=== PATIENT | female | born 1975 | race Caucasian/White ===

== ENCOUNTER → 2016-07-02 | Outpatient (CLI) | payer BC ==
[~2016-07-02] MED LIST: CEPHALEXIN500 M1 PO; MOTRIN800 MG PO; PREDNISONE20 M1 PO; XANAX0.25 MG PO
== END | disposition home or self-care (01) ==
LOC: US 15:45
DX: R31.9 Hematuria, unspecified (principal); R10.9 Unspecified abdominal pain

== ENCOUNTER 2017-04-26 18:35 | Inpatient (IN) | payer OTHER ==
[~2017-04-26] VITALS: Ht 162.6 cm; Wt 88.1 kg
--- NOTE | ~2017-04-26 | PR ---
[place], [place] PROGRESS NOTE NAME: ELHAM LIANG [facility] #: [id number] UNIT #: [id number] ROOM: 406 DOCTOR: JERRICA MORILLO MD BIRTHDATE: [birth year] DOS: 04/28/2017 SUBJECTIVE: The patient was seen in the Cardiology Department today, 04/28/2017, prior to her having a stress test. She is a 41-year-old woman who had an episode of tachy palpitations. She described this as a fluttering in her chest with some radiation to her left lateral neck. She presented to the Emergency Room, by which time her symptoms had resolved. Her electrocardiogram was unremarkable. Troponin levels were marginally elevated at 0.090, 0.080 and 0.076. Monitor has not shown any SVT since her admission. She denies consumption of any decongestants, sinus medications or other stimulants. A drug screen was negative. PHYSICAL EXAMINATION: VITAL SIGNS: Today, her pulse was 90 and regular, blood pressure 124/76. She is afebrile. NECK: Supple. She has no jugular distention. Carotids are full. LUNGS: Respirations are unlabored. Her chest is clear to auscultation and percussion. HEART: Has a regular rhythm without murmurs, rubs or gallops. ABDOMEN: Benign. EXTREMITIES: Showed no edema. IMPRESSION: 1. Tachy palpitations. 2. Minimal elevation in troponin. PLAN: We will obtain an echocardiogram and an exercise myocardial perfusion study today. If nothing shows up on her monitor and her studies are normal, she can be discharged and should have a 30-day event recorder as an outpatient. We thank the hospitalist physicians for asking our advice regarding her care. JERRICA MORILLO MD CM:[facility]ANS [id number] JERRICA MORILLO MD 04/28/17 1022 interface
[2017-04-26 18:51] VITALS: BP 161/85
[2017-04-26 19:05] LABS: BASO % 0.4 % (0.0-1.0); EOS # 0.2 10*3/uL (0.0-0.4); EOS % 2.3 % (1.0-4.0); HEMATOCRIT 40.7 % (37.0-47.0); HEMOGLOBIN 12.7 g/dl (12.0-16.0); LYMPH # 2.6 10*3/uL (1.3-4.4); LYMPH % 27.7 % (27.0-41.0); MEAN CELL VOLUME 80.9 fl (81.0-99.0); MEAN CORPUSCULAR HGB 25.2 pg (27.0-31.0); MEAN CORPUSCULAR HGB CONC 31.2 g/dl (33.0-37.0); MEAN PLATELET VOLUME 10.5 fl (9.6-12.3); MONO # 0.7 10*3/uL (0.1-1.0); MONO % 7.1 % (3.0-9.0); NEUT # 5.9 10*3/uL (2.3-7.9); NEUT % 62.3 % (47.0-73.0); PLATELET COUNT AUTOMATED 361 10*3/uL (130-400); RED BLOOD COUNT 5.03 10*6/uL (4.10-5.10); RED CELL DISTRI WIDTH 14.6 % (0-14.5); WHITE BLOOD COUNT 9.5 10*3/uL (4.8-10.8)
[2017-04-26 19:15] LABS: ACT PARTIAL THROMBO TIME 22.3 SECONDS (20.8-31.5)
[2017-04-26 19:22] LABS: BUN 11 mg/dl (7-24); CHLORIDE 108 mmol/L (98-107); CREATININE 0.86 mg/dL (0.55-1.02); POTASSIUM 3.8 mmol/L (3.5-5.1); SODIUM 144 mmol/L (136-145)
--- NOTE | 2017-04-26 19:26 | NUR ---
TROPONIN LEVEL GIVEN TO KEISHA
[2017-04-26 20:15] VITALS: BP 118/62
--- NOTE | 2017-04-26 20:17 | NUR ---
NO SOB, NO CHEST PAIN, NO SWEATING, "JUST FLUSHED FEELING"
[2017-04-26 20:34] VITALS: BP 118/82
[2017-04-26 21:30] VITALS: BP 129/83
--- NOTE | 2017-04-26 21:30 | NUR ---
A 41, admitted to , under the services of MARIXA Iqbal DO with a diagnosis of HEART PALPITATIONS; CHEST PAIN. Chief complaint is HEART PALPITATIONS. Patient arrived via stretcher from ER. Monitor applied. Initial assessment completed. Vital signs taken and recorded. MARIXA IQBAL DO notified of admission to the unit. Orders received. See assessment for past medical history, medications and allergies. Patient and/or family oriented to unit. [facility] reviewed. Clothing/patient valuable form completed. DOMENICO STRANGE
--- NOTE | 2017-04-26 22:02 | NUR ---
CALLED DR. WHITE WITH PT'S TROPONIN LEVEL & TO INFORM HIM THAT PATIENT IS ON THE FLOOR.
[2017-04-27] VITALS: BP 131/68
--- NOTE | 2017-04-27 01:13 | NUR ---
CALLED DR. WHITE WITH TROPONIN RESULT.
--- NOTE | 2017-04-27 06:00 | NUR ---
RESTING IN BED; PT. VOICES NO C/O AT THIS TIME. CALL LIGHT WITHIN REACH.
[2017-04-27 06:04] LABS: BASO % 0.6 % (0.0-1.0); EOS # 0.2 10*3/uL (0.0-0.4); EOS % 3.5 % (1.0-4.0); HEMOGLOBIN 11.5 g/dl (12.0-16.0); LYMPH # 2.2 10*3/uL (1.3-4.4); LYMPH % 33.6 % (27.0-41.0); MEAN CORPUSCULAR HGB 25.2 pg (27.0-31.0); MEAN CORPUSCULAR HGB CONC 31.1 g/dl (33.0-37.0); MEAN PLATELET VOLUME 10.4 fl (9.6-12.3); MONO # 0.5 10*3/uL (0.1-1.0); MONO % 7.9 % (3.0-9.0); NEUT # 3.5 10*3/uL (2.3-7.9); NEUT % 54.2 % (47.0-73.0); PLATELET COUNT AUTOMATED 287 10*3/uL (130-400); RED BLOOD COUNT 4.57 10*6/uL (4.10-5.10); RED CELL DISTRI WIDTH 14.6 % (0-14.5); WHITE BLOOD COUNT 6.5 10*3/uL (4.8-10.8)
[2017-04-27 06:29] LABS: BUN 10 mg/dl (7-24); CHLORIDE 106 mmol/L (98-107); CHOLESTEROL 197 mg/dL (<200); POTASSIUM 3.7 mmol/L (3.5-5.1); SODIUM 142 mmol/L (136-145); TRIGLYCERIDES 81 mg/dl (<150); VLDL CHOLESTEROL 16 mg/dL (6-40)
[2017-04-27 06:30] LABS: HDL CHOLESTEROL 58 mg/dl (40-60); LDL CHOLESTEROL 123 mg/dL (9-159)
[2017-04-27 07:06] LABS: ACT PARTIAL THROMBO TIME 23.4 SECONDS (20.8-31.5)
[2017-04-27 07:44] LABS: VITAMIN D, 25-HYDROXY 16.4 ng/mL (30-100)
[2017-04-27 08:00] VITALS: BP 122/72
[2017-04-27 09:43] LABS: BILIRUBIN NEGATIVE (NEGATIVE); BLOOD NEGATIVE (NEGATIVE); CLARITY SL CLOUDY (CLEAR); COLOR YELLOW (YELLOW); GLUCOSE NEGATIVE (NEGATIVE); KETONE NEGATIVE (NEGATIVE); LEUKO ESTERASE NEGATIVE (NEGATIVE); NITRITE NEGATIVE (NEGATIVE); PH 6.5 (5.0-9.0); SPECIFIC GRAVITY 1.015 (1.005-1.030); UROBILINOGEN 0.2 E.U./dl (0.2-1.0)
[2017-04-27 09:52] LABS: URINE AMPHETAMINES < 1000 (1000ng/ml); URINE BARBITURATES < 200 (200ng/ml); URINE BENZODIAZEPINES < 200 (200ng/ml); URINE CANNABINOIDS (THC) < 50 (50ng/ml); URINE COCAINE < 300 (300ng/ml); URINE METHADONE < 300 (300ng/ml); URINE OPIATES < 300 (300ng/ml); URINE PHENCYCLIDINE < 25 (25ng/ml)
[2017-04-27 10:00] LABS: BACTERIA 2+; MUCOUS 1+
[2017-04-27 12:00] VITALS: BP 118/58
--- NOTE | 2017-04-27 12:31 | NUR ---
CONSULT CALLED TO DR PLUNKETT ANSWERING SERVICE.
[2017-04-27 16:00] VITALS: BP 127/58
[2017-04-27 20:00] VITALS: BP 130/75
[2017-04-28] VITALS: BP 129/78
--- NOTE | 2017-04-28 | NUR ---
PATIENT AWARE OF BEING NPO. NO DISTRESS NOTED. VOICES NO COMPLAINTS. CALL LIGHT WITHIN REACH.
--- NOTE | 2017-04-28 01:09 | NUR ---
24 HR chart check completed.
[2017-04-28 08:00] VITALS: BP 124/76
--- NOTE | 2017-04-28 08:12 | NUR ---
24 HR chart check completed.
--- NOTE | 2017-04-28 09:00 | NUR ---
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 Patient states lives at home with . There are few steps in the home. Physician: none Pharmacy: none Home health services: none Patient's level of ADLs: INDEPENDENT Patient has working utilities: all working DME: none Follow-up physician's appointment after d/c: will be made by hospitalist nurse director with doctor of patient's choice Does patient want to access PORTAL?: no Discharge plan disucssed with , patient was having testing done, patient lives at home with , she is independent in adls and ambulation, states she will return home and denies any home needs. LIBORIO MARTINEZ
--- NOTE | 2017-04-28 09:15 | NUR ---
INFORMED SIGNED CONSENT OBTAINED FOR CARDIOLITE RAE STRESS TEST WITH DR MORILLO. RESTING EKG NSR HR 78 BP 128/74 IN SUPINE POSITION, STANDING HR 85 BP 120/80. PT COMPLETED 8:45 OF A RAE PROTOCOL WITH PT COMPLETING 2:45 OF STAGE III AT 3.4 MPHAND A 14% GRADE. PT REACHED A PEAK HR OF 168 WHICH REPRESENTS 92% OF PREDICTED MAXIMUM AND A PEAK BP OF 130/70. NO ARRHYTHMIAS OR ST CHANGES NOTED. TEST TERMIANTED DUE TO FATIGUE. LAST RECOVERY HR OF 99 BP 118/78. PT WAS DICONNECTED FROM HEART MONITIOR AND THEN BECAME LIGHTHEADED AND ASSISTED TO LIE DOWN. LEADS REATTACHED PTS HR 107 BP 98/58. PT C/O NEAR SYNCOPE FEELING. PT REMAINED IN NSR-SINUS TACHYCARDIA HR 100-111. AT 15 MINUTES RECOVERY HR 112 BP 100/62, PT ASYMPTOMATIC AND PT WAS ASSITED TO WHEEL CHAIR FOR PICUTURES. PT IN STABLE CONDITION.
--- NOTE | 2017-04-28 10:50 | NUR ---
PT BACK FROM CARDIAC REHAB AND STRESS COMPLETE. REPORT RECEIVED AND DIET RESUMED.
[2017-04-28 12:00] VITALS: BP 120/76
[2017-04-28 16:00] VITALS: BP 116/57
[2017-04-28] MEDS ORDERED: ATORVASTATIN CA40 M1 PO (16:04)
[2017-04-28] MEDS ORDERED: METOPROLOL SUCC25 M2 PO (16:04)
[2017-04-28] MEDS ORDERED: ASPIRIN325 MG PO (16:04)
--- NOTE | 2017-04-28 17:46 | NUR ---
Discharge instructions reviewed with patient/family. Patient receptive and verbalizes understanding. Follow-up care arranged. Written instructions given to patient/family. TELEMETRY ACCOUNTED FOR. PAULETTE SNOW
== END 2017-04-28 17:46 | disposition home or self-care (01) | DRG 392 ==
LOC: ED 18:35 → 4E 20:02
PROVIDERS: Emergency Medicine; Internal Medicine; ADMIT Internal Medicine
PROC: 4A02XM4 Measurement of Cardiac Total Activity, External Approach (ICD-10-PCS; principal; 2017-04-28)
PROC: 3E073KZ Introduction of Other Diagnostic Substance into Coronary Artery, Percutaneous Approach (ICD-10-PCS; principal; 2017-04-28)
DX: K21.9 Gastro-esophageal reflux disease without esophagitis (principal); E55.9 Vitamin D deficiency, unspecified; R07.89 Other chest pain; R74.8 Abnormal levels of other serum enzymes; R00.2 Palpitations; I51.7 Cardiomegaly; F41.9 Anxiety disorder, unspecified; S00.83XA Contusion of other part of head, initial encounter; Z91.010 Allergy to peanuts; Z87.891 Personal history of nicotine dependence; X58.XXXA Exposure to other specified factors, initial encounter; Y93.89 Activity, other specified; Y92.89 Other specified places as the place of occurrence of the external cause; Y99.8 Other external cause status

== ENCOUNTER → 2017-05-09 | Outpatient (CLI) | payer OTHER ==
[~2017-05-09] MED LIST changes: +ASPIRIN325 MG PO; +ATORVASTATIN CA40 M1 PO; +METOPROLOL SUCC25 M2 PO
== END | disposition home or self-care (01) ==
LOC: RAD 08:32
DX: E04.1 Nontoxic single thyroid nodule (principal)

== ENCOUNTER → 2017-07-29 | Outpatient (CLI) | payer OTHER ==
[2017-07-29 16:06] LABS: BASO % 0.6 % (0.0-1.0); EOS # 0.1 10*3/uL (0.0-0.4); EOS % 1.5 % (1.0-4.0); HEMATOCRIT 34.8 % (37.0-47.0); HEMOGLOBIN 10.6 g/dl (12.0-16.0); LYMPH % 29.1 % (27.0-41.0); MEAN CELL VOLUME 77.5 fl (81.0-99.0); MEAN CORPUSCULAR HGB 23.6 pg (27.0-31.0); MEAN CORPUSCULAR HGB CONC 30.5 g/dl (33.0-37.0); MEAN PLATELET VOLUME 10.6 fl (9.6-12.3); MONO # 0.5 10*3/uL (0.1-1.0); MONO % 7.8 % (3.0-9.0); NEUT # 4.1 10*3/uL (2.3-7.9); NEUT % 60.7 % (47.0-73.0); PLATELET COUNT AUTOMATED 291 10*3/uL (130-400); RED BLOOD COUNT 4.49 10*6/uL (4.10-5.10); RED CELL DISTRI WIDTH 14.9 % (0-14.5); WHITE BLOOD COUNT 6.8 10*3/uL (4.8-10.8)
[2017-07-29 16:22] LABS: ALBUMIN 3.8 gm/dl (3.1-4.5); ALKALINE PHOSPHATASE 106 U/L (45-117); BUN 13 mg/dl (7-24); CHLORIDE 104 mmol/L (98-107); CREATININE 0.77 mg/dL (0.55-1.02); POTASSIUM 3.8 mmol/L (3.5-5.1); SGOT/AST 24 IU/L (3-35); SGPT/ALT 34 U/L (12-78); SODIUM 140 mmol/L (136-145); TOTAL PROTEIN 7.2 gm/dL (6.4-8.2)
== END | disposition home or self-care (01) ==
LOC: LAB 14:13
PROVIDERS: Family Medicine
DX: M25.561 Pain in right knee (principal); M25.562 Pain in left knee; M25.462 Effusion, left knee; M25.461 Effusion, right knee; R60.0 Localized edema

== ENCOUNTER → 2018-07-29 | Outpatient (CLI) | payer OTHER | END | disposition home or self-care (01) | LOC: MAMMO 12:13 | DX: Z12.31 Encounter for screening mammogram for malignant neoplasm of breast (principal) ==

== ENCOUNTER → 2018-07-30 | Outpatient (CLI) | payer OTHER | END | disposition home or self-care (01) | LOC: MAMMO 08:24 | DX: N63.21 Unspecified lump in the left breast, upper outer quadrant (principal) ==

== ENCOUNTER → 2018-08-20 | Outpatient (CLI) | payer OTHER ==
[~2018-08-20] MED LIST changes: +DEPO PROVER150 MG/M1 IM; +Motrin,Rufen800 MG PO
== END ==
LOC: US 10:14
DX: Z97.5 Presence of (intrauterine) contraceptive device (principal)

== ENCOUNTER → 2019-02-02 | Day surgery (SDC) | payer OTHER ==
[2019-01-26 07:49] VITALS: BP 136/89
[~2019-02-02] VITALS: Ht 162.5 cm; Wt 94.8 kg
[2019-02-02 07:05] VITALS: BP 170/101
[2019-02-02 08:02] VITALS: BP 145/78
[2019-02-02 08:15] VITALS: BP 136/59
[2019-02-02 08:30] VITALS: BP 146/78
[2019-02-02 08:58] VITALS: BP 123/82
== END | disposition home or self-care (01) ==
LOC: SDC 01-26 14:00
DX: N84.0 Polyp of corpus uteri (principal); N93.9 Abnormal uterine and vaginal bleeding, unspecified; I10 Essential (primary) hypertension; F41.9 Anxiety disorder, unspecified; Z79.82 Long term (current) use of aspirin; Z79.899 Other long term (current) drug therapy; Z88.8 Allergy status to other drugs, medicaments and biological substances; Z98.890 Other specified postprocedural states

== ENCOUNTER 2019-05-14 20:28 | Emergency (ER) | payer OTHER ==
[~2019-05-14] VITALS: Ht 162.5 cm; Wt 86.2 kg
[2019-05-14 20:30] VITALS: BP 168/70
[2019-05-14] MEDS ORDERED: OMNICEF300 MG PO (20:57)
== END 2019-05-14 21:03 | disposition home or self-care (01) ==
LOC: ED 20:28
DX: H00.015 Hordeolum externum left lower eyelid (principal); J32.9 Chronic sinusitis, unspecified; Z91.010 Allergy to peanuts

== ENCOUNTER → 2019-09-01 | Outpatient (CLI) | payer OTHER ==
[~2019-09-01] MED LIST changes: +OMNICEF300 MG PO
== END | disposition home or self-care (01) ==
LOC: RAD 06:18
DX: Z12.31 Encounter for screening mammogram for malignant neoplasm of breast (principal)

== ENCOUNTER → 2020-02-18 | Outpatient (CLI) | payer OTHER ==
[2020-02-18 12:53] LABS: BASO % 0.6 % (0.0-1.0); EOS # 0.1 10*3/uL (0.0-0.4); HEMATOCRIT 36.1 % (37.0-47.0); LYMPH # 1.1 10*3/uL (1.3-4.4); LYMPH % 17.3 % (27.0-41.0); MEAN CELL VOLUME 73.2 fl (81.0-99.0); MEAN CORPUSCULAR HGB 21.5 pg (27.0-31.0); MEAN CORPUSCULAR HGB CONC 29.4 g/dl (33.0-37.0); MEAN PLATELET VOLUME 10.3 fl (9.6-12.3); MONO # 0.4 10*3/uL (0.1-1.0); MONO % 6.2 % (3.0-9.0); NEUT # 4.7 10*3/uL (2.3-7.9); NEUT % 74.7 % (47.0-73.0); PLATELET COUNT AUTOMATED 360 10*3/uL (130-400); RED BLOOD COUNT 4.93 10*6/uL (4.10-5.10); RED CELL DISTRI WIDTH 17.2 % (0-14.5); WHITE BLOOD COUNT 6.3 10*3/uL (4.8-10.8)
== END | disposition home or self-care (01) ==
LOC: LAB 12:06
PROVIDERS: Family Medicine
DX: K29.00 Acute gastritis without bleeding (principal)

== ENCOUNTER 2020-03-24 20:08 | Emergency (ER) | payer OTHER ==
[~2020-03-24] VITALS: Wt 85.7 kg
[~2020-03-24 20:08] MED LIST changes: +CLARITIN10 MG PO
[2020-03-24 20:19] VITALS: BP 159/86
[2020-03-24] MEDS ORDERED: Carafate1 GM/10 ML PO (20:36)
[2020-03-24] MEDS ORDERED: ALLEGRA-D 24 H1 EACH PO (20:37)
== END 2020-03-24 20:29 | disposition home or self-care (01) ==
LOC: ED 20:08
DX: H65.93 Unspecified nonsuppurative otitis media, bilateral (principal); K21.9 Gastro-esophageal reflux disease without esophagitis; Z91.010 Allergy to peanuts; Z79.899 Other long term (current) drug therapy

== ENCOUNTER → 2020-04-10 | Outpatient (CLI) | payer OTHER ==
[~2020-04-10] MED LIST changes: +ALLEGRA-D 24 H1 EACH PO; +ARNUITY ELLIPT50 MCG INH; +Carafate1 GM/10 ML PO; +PANTOPRAZOLE SO40 MG PO
== END | disposition home or self-care (01) ==
LOC: COVID19 06:37
PROVIDERS: ATTEND Surgery
DX: Z01.812 Encounter for preprocedural laboratory examination (principal); Z20.828 Contact with and (suspected) exposure to other viral communicable diseases

== ENCOUNTER → 2020-04-12 | Outpatient (CLI) | payer OTHER | END | disposition home or self-care (01) | LOC: US 00:22 | PROVIDERS: ATTEND Family Medicine | DX: K80.20 Calculus of gallbladder without cholecystitis without obstruction (principal); K76.0 Fatty (change of) liver, not elsewhere classified ==

== ENCOUNTER → 2020-04-13 | Day surgery (SDC) | payer OTHER ==
[~2020-04-13] VITALS: Ht 162.5 cm; Wt 83.9 kg
[2020-04-13 08:44] VITALS: BP 150/106
[2020-04-13 10:09] VITALS: BP 136/80
[2020-04-13 10:24] VITALS: BP 140/71
--- NOTE | 2020-04-13 10:30 | NUR ---
DR RIVERO IN SPOKE WITH PATIENT AND . SITTING AT BEDSIDE.
[2020-04-13 10:39] VITALS: BP 142/85
== END | disposition home or self-care (01) ==
LOC: SDC 04-10 13:15
PROVIDERS: ATTEND Surgery
DX: K21.9 Gastro-esophageal reflux disease without esophagitis (principal); K29.50 Unspecified chronic gastritis without bleeding; I10 Essential (primary) hypertension; F41.9 Anxiety disorder, unspecified; Z98.890 Other specified postprocedural states; Z88.8 Allergy status to other drugs, medicaments and biological substances; Z79.899 Other long term (current) drug therapy; Z82.49 Family history of ischemic heart disease and other diseases of the circulatory system

== ENCOUNTER → 2020-08-08 | Outpatient (CLI) | payer OTHER ==
[2020-08-10 20:07] LABS: ALTERNARIA ALTERNATA, IGE <0.10 kU/L (Class 0); AMERICAN ELM, IGE <0.10 kU/L (Class 0); ASPERGILLUS FUMIGATU, IGE <0.10 kU/L (Class 0); BERMUDA GRASS, IGE <0.10 kU/L (Class 0); BIRCH, COMMON SILVER IGE <0.10 kU/L (Class 0); CLADOSPORIUM HERBARU, IGE <0.10 kU/L (Class 0); CORN, IGE <0.10 kU/L (Class 0); D FARINAE MITE <0.10 kU/L (Class 0); D PTERONYSSINUS <0.10 kU/L (Class 0); DOG DANDER, IGE <0.10 kU/L (Class 0); IMMUNOGLOBULIN IgE 4 IU/mL (6-495); MAPLE LEAF SYCAMORE, IGE <0.10 kU/L (Class 0); MAPLE/BOX ELDER, IGE <0.10 kU/L (Class 0); MILK (COW), IGE <0.10 kU/L (Class 0); MOUSE URINE IGE <0.10 kU/L (Class 0); PEANUT, IGE <0.10 kU/L (Class 0); PENICILLIUM CHRYSOGENUM, IGE <0.10 kU/L (Class 0); ROUGH PIGWEED, IGE <0.10 kU/L (Class 0); SHEEP SORREL (DOCK), IGE <0.10 kU/L (Class 0); SHORT RAGWEED, IGE <0.10 kU/L (Class 0); SOYBEAN, IGE <0.10 kU/L (Class 0); TIMOTHY, IGE <0.10 kU/L (Class 0); WALNUT TREE, IGE <0.10 kU/L (Class 0); WHEAT, IGE <0.10 kU/L (Class 0); WHITE ASH, IGE <0.10 kU/L (Class 0); WHITE MULBERRY, IGE <0.10 kU/L (Class 0); WHITE OAK, IGE <0.10 kU/L (Class 0)
== END | disposition home or self-care (01) ==
LOC: LAB 10:31
PROVIDERS: ATTEND Specialist
DX: J30.9 Allergic rhinitis, unspecified (principal)

== ENCOUNTER → 2021-07-18 | Outpatient (CLI) | payer OTHER | END | disposition home or self-care (01) | LOC: MAMMO 06:49 | PROVIDERS: ATTEND Nurse Practitioner Women's Health | DX: Z12.31 Encounter for screening mammogram for malignant neoplasm of breast (principal) ==

== ENCOUNTER 2021-09-25 07:23 | Emergency (ER) | payer OTHER ==
[~2021-09-25] VITALS: Wt 92.4 kg
[2021-09-25 07:50] LABS: BASO % 0.4 % (0.0-1.0); EOS # 0.1 10*3/uL (0.0-0.4); HEMATOCRIT 42.3 % (37.0-47.0); LYMPH # 1.8 10*3/uL (1.3-4.4); LYMPH % 25.1 % (27.0-41.0); MEAN CELL VOLUME 84.1 fl (81.0-99.0); MEAN CORPUSCULAR HGB 26.8 pg (27.0-31.0); MEAN CORPUSCULAR HGB CONC 31.9 g/dl (33.0-37.0); MEAN PLATELET VOLUME 10.7 fl (9.6-12.3); MONO # 0.5 10*3/uL (0.1-1.0); MONO % 6.8 % (3.0-9.0); NEUT # 4.7 10*3/uL (2.3-7.9); NEUT % 66.4 % (47.0-73.0); PLATELET COUNT AUTOMATED 295 10*3/uL (130-400); RED BLOOD COUNT 5.03 10*6/uL (4.10-5.10); RED CELL DISTRI WIDTH 14.2 % (0-14.5); WHITE BLOOD COUNT 7.1 10*3/uL (4.8-10.8)
[2021-09-25 08:07] LABS: ALKALINE PHOSPHATASE 75 U/L (45-117); BUN 9 mg/dl (7-24); CHLORIDE 112 mmol/L (98-107); CREATININE 0.78 mg/dL (0.55-1.02); POTASSIUM 3.7 mmol/L (3.5-5.1); SGOT/AST 15 IU/L (3-35); SGPT/ALT 16 U/L (12-78); SODIUM 144 mmol/L (136-145); TOTAL PROTEIN 6.4 gm/dL (6.4-8.2)
[2021-09-25 08:47] VITALS: BP 143/89
== END 2021-09-25 09:03 | disposition home or self-care (01) ==
LOC: ED 07:23
PROVIDERS: Emergency Medicine
DX: R55 Syncope and collapse (principal); Z91.010 Allergy to peanuts; Z79.899 Other long term (current) drug therapy; Z90.49 Acquired absence of other specified parts of digestive tract; Z90.89 Acquired absence of other organs

== ENCOUNTER 2022-01-21 14:16 | Emergency (ER) | payer OTHER ==
[~2022-01-21] VITALS: Wt 87.1 kg
[2022-01-21 14:32] VITALS: BP 157/79
[2022-01-21] MEDS ORDERED: AMOX-CLAV 875-1 EACH PO (15:45)
== END 2022-01-21 16:24 | disposition home or self-care (01) ==
LOC: ED 14:16
DX: S61.052A Open bite of left thumb without damage to nail, initial encounter (principal); Z90.49 Acquired absence of other specified parts of digestive tract; Z79.899 Other long term (current) drug therapy; W55.01XA Bitten by cat, initial encounter; Y93.89 Activity, other specified; Y92.89 Other specified places as the place of occurrence of the external cause; Y99.9 Unspecified external cause status

== ENCOUNTER 2022-01-24 15:02 | Emergency (ER) | payer OTHER ==
[~2022-01-24 15:02] MED LIST changes: +AMOX-CLAV 875-1 EACH PO
[2022-01-24 15:09] VITALS: BP 146/76
== END 2022-01-24 15:22 | disposition home or self-care (01) ==
LOC: ED 15:02
DX: Z23 Encounter for immunization (principal); Z90.49 Acquired absence of other specified parts of digestive tract; Z79.899 Other long term (current) drug therapy; Z91.010 Allergy to peanuts

== ENCOUNTER 2022-01-28 11:16 | Emergency (ER) | payer OTHER ==
[2022-01-28 11:30] VITALS: BP 139/69
== END 2022-01-28 12:03 | disposition home or self-care (01) ==
LOC: ED 11:16
DX: S61.452D Open bite of left hand, subsequent encounter (principal); Z23 Encounter for immunization; Z91.010 Allergy to peanuts; Z79.2 Long term (current) use of antibiotics; Z79.899 Other long term (current) drug therapy; Z90.49 Acquired absence of other specified parts of digestive tract; W55.01XD Bitten by cat, subsequent encounter

== ENCOUNTER 2022-02-04 14:51 | Emergency (ER) | payer OTHER ==
[~2022-02-04] VITALS: Ht 162.5 cm; Wt 86.2 kg
[2022-02-04 14:52] VITALS: BP 134/68
== END 2022-02-04 15:10 | disposition home or self-care (01) ==
LOC: ED 14:51
DX: S61.452D Open bite of left hand, subsequent encounter (principal); Z23 Encounter for immunization; Z91.010 Allergy to peanuts; Z79.2 Long term (current) use of antibiotics; Z79.899 Other long term (current) drug therapy; Z90.49 Acquired absence of other specified parts of digestive tract; W55.01XD Bitten by cat, subsequent encounter

== ENCOUNTER → 2022-09-17 | Outpatient (CLI) | payer OTHER | END | disposition home or self-care (01) | LOC: MAMMO 07:40 | PROVIDERS: ATTEND Nurse Practitioner Women's Health | DX: Z12.31 Encounter for screening mammogram for malignant neoplasm of breast (principal); N60.01 Solitary cyst of right breast; N60.02 Solitary cyst of left breast; N63.10 Unspecified lump in the right breast, unspecified quadrant ==

== ENCOUNTER → 2022-10-11 | Outpatient (CLI) | payer OTHER ==
[2022-10-11 14:14] LABS: BASO % 0.5 % (0.0-1.0); EOS # 0.2 10*3/uL (0.0-0.4); HEMATOCRIT 39.2 % (37.0-47.0); LYMPH # 1.5 10*3/uL (1.3-4.4); LYMPH % 19.8 % (27.0-41.0); MEAN CORPUSCULAR HGB CONC 32.1 g/dl (33.0-37.0); MEAN PLATELET VOLUME 10.2 fl (9.6-12.3); MONO # 0.5 10*3/uL (0.1-1.0); MONO % 6.9 % (3.0-9.0); NEUT # 5.3 10*3/uL (2.3-7.9); NEUT % 69.5 % (47.0-73.0); PLATELET COUNT AUTOMATED 298 10*3/uL (130-400); RED BLOOD COUNT 4.84 10*6/uL (4.10-5.10); RED CELL DISTRI WIDTH 15.8 % (0-14.5); WHITE BLOOD COUNT 7.6 10*3/uL (4.8-10.8)
[2022-10-11 14:33] LABS: ALKALINE PHOSPHATASE 85 U/L (46-116); BUN 8 mg/dl (9-23); CHLORIDE 104 mmol/L (98-107); CHOLESTEROL 189 mg/dL (<200); LDL CHOLESTEROL 96 mg/dL (9-159); POTASSIUM 3.9 mmol/L (3.4-5.1); SGPT/ALT 35 U/L (10-49); TOTAL PROTEIN 6.7 gm/dL (6.0-8.0); TRIGLYCERIDES 147 mg/dl (<150)
== END | disposition home or self-care (01) ==
LOC: LAB 13:50
PROVIDERS: Family Medicine; ATTEND Family Medicine
DX: M48.02 Spinal stenosis, cervical region (principal); M25.78 Osteophyte, vertebrae; I10 Essential (primary) hypertension; E04.1 Nontoxic single thyroid nodule; D50.9 Iron deficiency anemia, unspecified; E55.9 Vitamin D deficiency, unspecified

== ENCOUNTER → 2023-03-13 | Outpatient (CLI) | payer OTHER ==
[2023-03-13 15:21] LABS: BASO # 0.1 10*3/uL (0.0-0.1); BASO % 0.7 % (0.0-1.0); EOS # 0.1 10*3/uL (0.0-0.4); EOS % 1.2 % (1.0-4.0); HEMATOCRIT 38.2 % (37.0-47.0); LYMPH # 1.6 10*3/uL (1.3-4.4); LYMPH % 23.7 % (27.0-41.0); MEAN CELL VOLUME 78.9 fl (81.0-99.0); MEAN CORPUSCULAR HGB 24.8 pg (27.0-31.0); MEAN CORPUSCULAR HGB CONC 31.4 g/dl (33.0-37.0); MEAN PLATELET VOLUME 9.9 fl (9.6-12.3); MONO # 0.5 10*3/uL (0.1-1.0); MONO % 7.4 % (3.0-9.0); NEUT # 4.6 10*3/uL (2.3-7.9); NEUT % 66.9 % (47.0-73.0); PLATELET COUNT AUTOMATED 316 10*3/uL (130-400); RED BLOOD COUNT 4.84 10*6/uL (4.10-5.10); RED CELL DISTRI WIDTH 15.1 % (0-14.5); WHITE BLOOD COUNT 6.9 10*3/uL (4.8-10.8)
== END | disposition home or self-care (01) ==
LOC: LAB 14:56
PROVIDERS: ATTEND Nurse Practitioner Women's Health
DX: N93.9 Abnormal uterine and vaginal bleeding, unspecified (principal); R23.2 Flushing; R53.83 Other fatigue

== ENCOUNTER → 2023-03-14 | Outpatient (CLI) | payer OTHER | END | disposition home or self-care (01) | LOC: US 00:35 | PROVIDERS: ATTEND Nurse Practitioner Women's Health | DX: N88.8 Other specified noninflammatory disorders of cervix uteri (principal); N93.9 Abnormal uterine and vaginal bleeding, unspecified; R23.2 Flushing; R53.83 Other fatigue ==

== ENCOUNTER → 2023-08-19 | Outpatient (CLI) | payer OTHER | END | disposition home or self-care (01) | LOC: RAD 09:16 | PROVIDERS: ATTEND Emergency Medicine | DX: M25.512 Pain in left shoulder (principal) ==

== ENCOUNTER → 2023-08-22 | Outpatient (CLI) | payer OTHER ==
[2023-08-22 08:35] LABS: BASO % 0.5 % (0.0-1.0); EOS # 0.1 10*3/uL (0.0-0.4); EOS % 1.3 % (1.0-4.0); HEMATOCRIT 41.5 % (37.0-47.0); LYMPH # 1.2 10*3/uL (1.3-4.4); LYMPH % 20.2 % (27.0-41.0); MEAN CELL VOLUME 81.5 fl (81.0-99.0); MEAN CORPUSCULAR HGB CONC 30.6 g/dl (33.0-37.0); MEAN PLATELET VOLUME 10.1 fl (9.6-12.3); MONO # 0.4 10*3/uL (0.1-1.0); MONO % 7.2 % (3.0-9.0); NEUT # 4.3 10*3/uL (2.3-7.9); NEUT % 70.6 % (47.0-73.0); PLATELET COUNT AUTOMATED 305 10*3/uL (130-400); RED BLOOD COUNT 5.09 10*6/uL (4.10-5.10); RED CELL DISTRI WIDTH 15.9 % (0-14.5); WHITE BLOOD COUNT 6.1 10*3/uL (4.8-10.8)
[2023-08-22 08:59] LABS: ALKALINE PHOSPHATASE 107 U/L (46-116); BUN 8 mg/dl (9-23); CHLORIDE 105 mmol/L (98-107); CHOLESTEROL 195 mg/dL (<200); LDL CHOLESTEROL 127 mg/dL (9-159); POTASSIUM 3.5 mmol/L (3.4-5.1); SGPT/ALT 9 U/L (5-49); TOTAL PROTEIN 7.1 gm/dL (6.0-8.0); TRIGLYCERIDES 70 mg/dl (<150)
[2023-08-22 09:02] LABS: URINE CREATININE RANDOM 184.29 mg/dL
== END | disposition home or self-care (01) ==
LOC: LAB 08:10
PROVIDERS: ATTEND Student in an Organized Health Care Education/Training Program
DX: I10 Essential (primary) hypertension (principal)

== ENCOUNTER → 2023-10-09 | Outpatient (CLI) | payer OTHER ==
[2023-10-09 08:37] LABS: BUN 6 mg/dl (9-23); CHLORIDE 105 mmol/L (98-107); POTASSIUM 3.4 mmol/L (3.4-5.1)
== END | disposition home or self-care (01) ==
LOC: LAB 08:05
PROVIDERS: Family Medicine; ATTEND Family Medicine
DX: I10 Essential (primary) hypertension (principal)

== ENCOUNTER → 2023-10-28 | Outpatient (CLI) | payer OTHER | END | disposition home or self-care (01) | LOC: MRI 01:07 | PROVIDERS: ATTEND Internal Medicine | DX: M50.21 Other cervical disc displacement, high cervical region (principal); M47.816 Spondylosis without myelopathy or radiculopathy, lumbar region; M48.061 Spinal stenosis, lumbar region without neurogenic claudication ==

== ENCOUNTER → 2023-10-29 | Outpatient (CLI) | payer OTHER ==
[~2023-10-29] MED LIST changes: +GADOTERATE MEGLUMINE 10 MMOL/20 ML VIAL IV ONE
== END | disposition home or self-care (01) ==
LOC: MRI 01:39
PROVIDERS: ATTEND Internal Medicine
DX: R42 Dizziness and giddiness (principal); R29.5 Transient paralysis; R20.0 Anesthesia of skin

== ENCOUNTER → 2023-11-18 | Outpatient (CLI) | payer OTHER ==
[~2023-11-18] MED LIST changes: -GADOTERATE MEGLUMINE 10 MMOL/20 ML VIAL IV ONE
== END | disposition home or self-care (01) ==
LOC: MAMMO 07:20
PROVIDERS: ATTEND Nurse Practitioner Women's Health
DX: Z12.31 Encounter for screening mammogram for malignant neoplasm of breast (principal); R92.30 Dense breasts, unspecified; N63.20 Unspecified lump in the left breast, unspecified quadrant; N63.10 Unspecified lump in the right breast, unspecified quadrant

== ENCOUNTER 2024-06-21 23:35 | Emergency (ER) | payer OTHER ==
[2024-06-21] MEDS ORDERED: Ketorolac Tromethamine 60 MG/2 ML VIAL IM ONE (23:45)
[2024-06-22] MEDS ORDERED: TRAMADOL HCL50 MG PO (03:10)
[2024-06-22 03:16] VITALS: BP 179/80
== END 2024-06-22 03:18 | disposition home or self-care (01) ==
LOC: ED 23:35
DX: S82.832A Other fracture of upper and lower end of left fibula, initial encounter for closed fracture (principal); Z91.010 Allergy to peanuts; Z79.2 Long term (current) use of antibiotics; Z79.899 Other long term (current) drug therapy; W06.XXXA Fall from bed, initial encounter; Y93.89 Activity, other specified; Y92.89 Other specified places as the place of occurrence of the external cause; Y99.8 Other external cause status

== ENCOUNTER → 2024-07-19 | Outpatient (CLI) | payer OTHER ==
[~2024-07-19] MED LIST changes: +TRAMADOL HCL50 MG PO
== END | disposition home or self-care (01) ==
LOC: ORTHO 01:41
PROVIDERS: ATTEND Orthopaedic Surgery
DX: S82.832D Other fracture of upper and lower end of left fibula, subsequent encounter for closed fracture with routine healing (principal); X58.XXXD Exposure to other specified factors, subsequent encounter

== ENCOUNTER → 2024-08-25 | Outpatient (CLI) | payer OTHER | END | disposition home or self-care (01) | LOC: MRI 11:47 | PROVIDERS: ATTEND Internal Medicine | DX: M47.22 Other spondylosis with radiculopathy, cervical region (principal); M48.02 Spinal stenosis, cervical region; M25.78 Osteophyte, vertebrae ==

== ENCOUNTER → 2024-09-01 | Outpatient (CLI) | payer OTHER ==
[2024-09-01 09:18] LABS: BASO % 0.1 % (0.0-1.0); HEMATOCRIT 44.9 % (37.0-47.0); MEAN CELL VOLUME 86.3 fl (81.0-99.0); MEAN CORPUSCULAR HGB 28.3 pg (27.0-31.0); MEAN CORPUSCULAR HGB CONC 32.7 g/dl (33.0-37.0); MEAN PLATELET VOLUME 10.2 fl (9.6-12.3); MONO # 0.4 10*3/uL (0.1-1.0); MONO % 4.2 % (3.0-9.0); NEUT # 8.4 10*3/uL (2.3-7.9); NEUT % 85.2 % (47.0-73.0); PLATELET COUNT AUTOMATED 333 10*3/uL (130-400); RED CELL DISTRI WIDTH 13.1 % (0-14.5); WHITE BLOOD COUNT 9.9 10*3/uL (4.8-10.8)
[2024-09-01 09:59] LABS: ALKALINE PHOSPHATASE 103 U/L (46-116); BUN 12 mg/dl (9-23); CHLORIDE 106 mmol/L (98-107); CHOLESTEROL 221 mg/dL (<200); LDL CHOLESTEROL 149 mg/dL (9-159); POTASSIUM 4.1 mmol/L (3.4-5.1); SGPT/ALT 20 U/L (5-49); TOTAL PROTEIN 7.6 gm/dL (6.0-8.0)
[2024-09-01 10:00] LABS: VITAMIN D, 25-HYDROXY 27.7 ng/mL (30-100)
== END | disposition home or self-care (01) ==
LOC: LAB 09:05
PROVIDERS: ATTEND Internal Medicine
DX: I10 Essential (primary) hypertension (principal); G62.9 Polyneuropathy, unspecified; E66.9 Obesity, unspecified; E55.9 Vitamin D deficiency, unspecified

== ENCOUNTER → 2024-09-07 | Outpatient (CLI) | payer OTHER | END | disposition home or self-care (01) | LOC: MRI 09-06 09:00 | PROVIDERS: ATTEND Internal Medicine | DX: M47.817 Spondylosis without myelopathy or radiculopathy, lumbosacral region (principal); M51.16 Intervertebral disc disorders with radiculopathy, lumbar region; G62.9 Polyneuropathy, unspecified; E66.9 Obesity, unspecified ==

== ENCOUNTER 2024-11-16 22:08 | Inpatient (IN) | payer OTHER ==
[~2024-11-16] VITALS: Ht 162.6 cm; Wt 94.3 kg
[2024-11-16] MEDS ORDERED: dilTIAZem Hydrochloride 25 MG/5 ML VIAL IV ONE ×3 (22:25→23:10)
[2024-11-16] MEDS ORDERED: SODIUM CHLORIDE 0.9% 1,000 ML IV ONE (22:30)
[2024-11-16] MEDS ORDERED: dilTIAZem Hydrochloride 100 ML IV SCH (23:55)
[2024-11-17] VITALS (17 sets, daily range): BP systolic 102–132; BP diastolic 53–96
[2024-11-17 00:11] LABS: BASO % 0.6 % (0.0-1.0); EOS # 0.1 10*3/uL (0.0-0.4); EOS % 1.8 % (1.0-4.0); HEMATOCRIT 39.9 % (37.0-47.0); MEAN CELL VOLUME 85.3 fl (81.0-99.0); MEAN CORPUSCULAR HGB 29.1 pg (27.0-31.0); MEAN CORPUSCULAR HGB CONC 34.1 g/dl (33.0-37.0); MONO # 0.5 10*3/uL (0.1-1.0); MONO % 10.2 % (3.0-9.0); NEUT # 2.8 10*3/uL (2.3-7.9); NEUT % 56.7 % (47.0-73.0); PLATELET COUNT AUTOMATED 287 10*3/uL (130-400); RED BLOOD COUNT 4.68 10*6/uL (4.10-5.10)
[2024-11-17 00:35] LABS: BUN 11 mg/dl (9-23); CHLORIDE 109 mmol/L (98-107); POTASSIUM 3.1 mmol/L (3.4-5.1)
[2024-11-17] MEDS ORDERED: POTASSIUM CHLORIDE 20 MEQ TAB PO ONE ×3 (00:40→18:00)
[2024-11-17] MEDS ORDERED: SODIUM CHLORIDE 0.9% 1,000 ML IV ONE ×2 (02:10→03:00)
[2024-11-17] MEDS ORDERED: DIGOXIN 500 MCG/2 ML AMP IV ONE (02:35)
[2024-11-17] MEDS ORDERED: Metoprolol Tartrate 5 MG/5 ML VIAL IV ONE (03:45)
[2024-11-17] MEDS ORDERED: LYRICA50 M1 PO (03:45)
[2024-11-17] MEDS ORDERED: HYDROCHLOROTHIA25 M1 PO (03:46)
[2024-11-17 04:41] LABS: ALKALINE PHOSPHATASE 62 U/L (46-116); BUN 9 mg/dl (9-23); CHLORIDE 111 mmol/L (98-107); CHOLESTEROL 176 mg/dL (<200); FREE T4 1.06 ng/dl (0.89-1.76); LDL CHOLESTEROL 123 mg/dL (9-159); POTASSIUM 3.3 mmol/L (3.4-5.1); SGPT/ALT 14 U/L (5-49); TOTAL PROTEIN 5.8 gm/dL (6.0-8.0); TRIGLYCERIDES 77 mg/dl (<150)
[2024-11-17 04:42] LABS: VITAMIN D, 25-HYDROXY 25.4 ng/mL (30-100)
[2024-11-17] MEDS ORDERED: MAGNESIUM SULFATE 50 ML IV ONE (04:45)
[2024-11-17] MEDS ORDERED: HEPARIN SODIUM 250 ML IV SCH (07:35)
[2024-11-17] MEDS ORDERED: METOPROLOL SUCCINATE XR 25 MG TAB PO SCH (08:00)
[2024-11-17] MEDS ORDERED: ASPIRIN, CHEWABLE 81 MG TAB PO ONE (09:25)
[2024-11-17] MEDS ORDERED: ATORVASTATIN CALCIUM 40 MG TABLET PO SCH (10:00)
[2024-11-17] MEDS ORDERED: Enoxaparin Sodium 40 MG/0.4 ML SYR SC SCH (10:00)
[2024-11-17] MEDS ORDERED: Cholecalciferol 2,000 UNIT TABLET (50 MCG) PO SCH (10:00)
[2024-11-17] MEDS ORDERED: HEPARIN SODIUM 5,000 UNIT/ML VIAL SC SCH (10:00)
[2024-11-17] MEDS ORDERED: Technetium Tc 99M Tetrofosmi 0.23 MG KIT IJ SCH (11:05)
[2024-11-17] MEDS ORDERED: PREGABALIN 50 MG CAP PO SCH (14:00)
[2024-11-17] MEDS ORDERED: Metoprolol Tartrate 25 MG TAB PO SCH (22:00)
[2024-11-18] VITALS: BP 103/71
[2024-11-18 06:16] LABS: BUN 6 mg/dl (9-23); CHLORIDE 110 mmol/L (98-107); POTASSIUM 3.9 mmol/L (3.4-5.1)
[2024-11-18] MEDS ORDERED: Regadenoson 0.4 MG/5 ML SYR IV ONE (07:31)
[2024-11-18 08:00] VITALS: BP 138/96
[2024-11-18] MEDS ORDERED: ASPIRIN, CHEWABLE 81 MG TAB PO SCH (10:00)
[2024-11-18 11:37] VITALS: BP 126/98
[2024-11-18] MEDS ORDERED: LOPRESSOR25 MG PO (15:09)
[2024-11-18] MEDS ORDERED: VITAMIN D350 MCG PO (15:09)
[2024-11-18] MEDS ORDERED: POTASSIUM CHLO20 ME3 PO (15:09)
[2024-11-18] MEDS ORDERED: ELIQUIS5 M1 PO (15:48)
== END 2024-11-18 16:14 | disposition home or self-care (01) | DRG 309 ==
LOC: ED 22:08 → EDHOLD 11-17 02:08 → 5E 11-17 19:13
PROVIDERS: Internal Medicine; Student in an Organized Health Care Education/Training Program; ADMIT Internal Medicine; ATTEND Internal Medicine
DX: I48.91 Unspecified atrial fibrillation (principal); E44.1 Mild protein-calorie malnutrition; I24.89 Other forms of acute ischemic heart disease; E87.6 Hypokalemia; I10 Essential (primary) hypertension; F41.9 Anxiety disorder, unspecified; K21.9 Gastro-esophageal reflux disease without esophagitis; R61 Generalized hyperhidrosis; E87.8 Other disorders of electrolyte and fluid balance, not elsewhere classified; E55.9 Vitamin D deficiency, unspecified; Z91.018 Allergy to other foods; Z79.899 Other long term (current) drug therapy; Z79.01 Long term (current) use of anticoagulants; Z79.2 Long term (current) use of antibiotics; Z90.49 Acquired absence of other specified parts of digestive tract; Z68.35 Body mass index [BMI] 35.0-35.9, adult

== ENCOUNTER 2024-11-22 07:34 | Emergency (ER) | payer OTHER ==
[~2024-11-22] VITALS: Ht 162.5 cm; Wt 94.3 kg
[~2024-11-22 07:34] MED LIST changes: +ELIQUIS5 M1 PO; +HYDROCHLOROTHIA25 M1 PO; +LOPRESSOR25 MG PO; +LYRICA50 M1 PO; +POTASSIUM CHLO20 ME3 PO; +VITAMIN D350 MCG PO
[2024-11-22] MEDS ORDERED: SODIUM CHLORIDE 0.9% 1,000 ML IV ONE ×2 (07:40→07:51)
[2024-11-22 07:56] LABS: BASO % 0.6 % (0.0-1.0); EOS # 0.1 10*3/uL (0.0-0.4); EOS % 1.9 % (1.0-4.0); HEMATOCRIT 40.2 % (37.0-47.0); MEAN CELL VOLUME 87.6 fl (81.0-99.0); MEAN CORPUSCULAR HGB CONC 33.1 g/dl (33.0-37.0); MEAN PLATELET VOLUME 11.1 fl (9.6-12.3); MONO # 0.6 10*3/uL (0.1-1.0); MONO % 8.6 % (3.0-9.0); NEUT # 4.3 10*3/uL (2.3-7.9); NEUT % 62.7 % (47.0-73.0); PLATELET COUNT AUTOMATED 274 10*3/uL (130-400); RED BLOOD COUNT 4.59 10*6/uL (4.10-5.10); RED CELL DISTRI WIDTH 13.2 % (0-14.5); WHITE BLOOD COUNT 6.9 10*3/uL (4.8-10.8)
[2024-11-22 08:14] LABS: ACT PARTIAL THROMBO TIME 24.4 SECONDS (20.0-32.1)
[2024-11-22 08:17] LABS: ALKALINE PHOSPHATASE 75 U/L (46-116); BUN 12 mg/dl (9-23); CHLORIDE 107 mmol/L (98-107); POTASSIUM 3.7 mmol/L (3.4-5.1); SGPT/ALT 17 U/L (5-49); TOTAL PROTEIN 6.3 gm/dL (6.0-8.0)
[2024-11-22 08:35] VITALS: BP 140/87
== END 2024-11-22 10:24 | disposition home or self-care (01) ==
LOC: ED 07:34
PROVIDERS: Internal Medicine
DX: R55 Syncope and collapse (principal); F41.9 Anxiety disorder, unspecified; K21.9 Gastro-esophageal reflux disease without esophagitis; Z79.899 Other long term (current) drug therapy; Z91.010 Allergy to peanuts; Z90.49 Acquired absence of other specified parts of digestive tract; Z98.890 Other specified postprocedural states

== ENCOUNTER → 2025-03-03 | Outpatient (CLI) | payer OTHER | END | disposition home or self-care (01) | LOC: RAD 15:21 | PROVIDERS: ATTEND Internal Medicine | DX: M25.572 Pain in left ankle and joints of left foot (principal) ==